=== PATIENT | female | born 2000 | race Two or more races ===

== ENCOUNTER 2019-09-03 12:14 | Emergency (ER) | payer SELFPAY ==
[2019-09-03 12:23] VITALS: BP 112/48; PULSE 67; TEMP 98.1; BMI 28.0
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
== END 2019-09-03 14:23 | disposition home or self-care (01) ==
LOC: JERFT 12:14
PROC: 4A07X0Z Measurement of Visual Acuity, External Approach (ICD-10-PCS; principal; 2019-09-03)
DX: S09.21XA Traumatic rupture of right ear drum, initial encounter (principal); S05.11XA Contusion of eyeball and orbital tissues, right eye, initial encounter; Y04.2XXA Assault by strike against or bumped into by another person, initial encounter; Y93.89 Activity, other specified; Y92.89 Other specified places as the place of occurrence of the external cause; Y99.8 Other external cause status; Y07.9 Unspecified perpetrator of maltreatment and neglect
CPT/HCPCS: 70450-TC; 99281-25